=== PATIENT | male | born 1995 | race African-American/Black ===

== ENCOUNTER 2020-06-17 10:22 | Emergency (ER) | payer OTHER, SELFPAY ==
[2020-06-17 10:52] VITALS: BP 135/71; PULSE 81; RESP 16; TEMP 36.1; O2SAT 100
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
== END 2020-06-17 11:36 | disposition home or self-care (01) ==
PROVIDERS: Emergency Provider Registered Nurse
DX: Z72.51 High risk heterosexual behavior (principal)
CPT/HCPCS: 87491; 87591; 87661; 99213; G0463

== ENCOUNTER 2021-10-21 10:19 | Emergency (ER) | payer OTHER, SELFPAY ==
[2021-10-21 10:27] VITALS: BP 138/72; PULSE 80; RESP 16; TEMP 36.9; O2SAT 99
--- NOTE | 2021-10-21 10:35 | ED.MALEGU ---
HPI - Male Genitourinary General Chief complaint: Urogenital-Male Stated complaint: std testing Time Seen by Provider: 10/21/21 10:35 Source: patient and RN notes reviewed Mode of arrival: ambulatory Limitations: no limitations History of Present Illness HPI Narrative: 26-year-old male presented for known exposure to chlamydia. He states he just wants to be treated for chlamydia at this time. He endorses irritation of the genital area, denies discharge, dysuria, or skin lesions. States his girlfriend tested positive for chlamydia yesterday and has started the treatment. Denies any abdominal pain, nausea, vomiting, fevers or chills. Related Data Allergies Allergy/AdvReac Type Severity Reaction Status Date / Time No Known Allergies Allergy Verified 10/21/21 10:26 Review of Systems Review of Systems: CONSTITUTIONAL: Denies body aches, fever, chills, or sweats. CARDIOVASCULAR: Denies chest pain, palpitations, or edema. RESPIRATORY: Denies dyspnea. GASTROINTESTINAL: Denies abdominal pain, nausea, vomiting, or diarrhea. GENITOURINARY: Denies dysuria, frequency, urgency, hematuria, flank pain SKIN: Denies rash, itching, or wounds. MUSCULOSKELETAL: Denies back pain or myalgia. [facility] Past Medical History Medical History No significant past medical history Surgical History Surgical History No history of previous surgery Family History Family History Grandparent Diabetes mellitus Hypertension Social History Social History Smoking status: Never smoker Alcohol intake: current Alcohol use details: social Substance use: never Gender identity (if verbalized by the patient): Male Comments At time of signature, I have reviewed and agree with nursing past medical, surgical, social and family history unless otherwise noted. Please see nursing chart for further information. There is no relevant family history pertinent to the presenting complaint Exam Narrative: GENERAL: Well-appearing ENT: Mucous membranes pink and moist. CHEST: No respiratory distress. Clear to auscultation. HEART: Regular rate and rhythm. ABDOMEN: Soft, nontender, nondistended, normal active bowel sounds. No CVA tenderness MUSCULOSKELETAL: No bony tenderness. SKIN: Warm, dry, no rash. NEURO: No focal deficits. Alert and oriented x3. Gait steady. PSYCH: Normal affect. Course Course Emergency Course: Patient is aware of diagnosis, understands and agrees to treatment plan. Anticipatory guidance given. Patient agrees to follow-up as directed and is aware of reasons to seek care at the emergency department. Portions of this record may have been created with voice recognition software Level of Care: Express Care Visit Vital Signs Vital signs: Vital Signs Temperature 98.5 F 10/21/21 10:27 Pulse Rate 80 10/21/21 10:27 Respiratory Rate 16 10/21/21 10:27 Blood Pressure 138/72 10/21/21 10:27 Pulse Oximetry 99 10/21/21 10:27 Oxygen Delivery Room Air 10/21/21 10:27 Temperature 98.5 F 10/21/21 10:27 Pulse Rate 80 10/21/21 10:27 Respiratory Rate 16 10/21/21 10:27 Blood Pressure 138/72 10/21/21 10:27 Pulse Oximetry 99 10/21/21 10:27 Oxygen Delivery Room Air 10/21/21 10:27 Reviewed MDM - Male Genitourinary MDM Narrative Medical decision making narrative: Patient presenting with concern for STD. Urine specimen collected for GC, chlamydia, trich. Informed Pt will be contacted w/ results when they become available if they are positive. Discussed with patient that it takes up to 7 days for results of cultures to be released and explained that we may treat empirically at this time. Agreeable to treatment for chlamydia only at this time due to the known exposure. I have
== END 2021-10-21 11:00 | disposition home or self-care (01) ==
PROVIDERS: Emergency Provider Nurse Practitioner Family
DX: Z20.2 Contact with and (suspected) exposure to infections with a predominantly sexual mode of transmission (principal)
CPT/HCPCS: 87491; 87591; 87661; 99213; G0463

== ENCOUNTER 2022-08-13 13:10 | Emergency (ER) | payer OTHER, SELFPAY ==
[2022-08-13 13:22] VITALS: BP 127/83; PULSE 95; RESP 18; TEMP 37.3; O2SAT 100
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
[2022-08-13 13:24] VITALS: BP 127/83; PULSE 95; RESP 18; TEMP 37.3; O2SAT 100
== END 2022-08-13 13:32 | disposition home or self-care (01) ==
PROVIDERS: Emergency Provider Nurse Practitioner
DX: R51.9 Headache, unspecified (principal)
CPT/HCPCS: 99213; G0463

== ENCOUNTER 2022-10-01 05:28 | Emergency (ER) | payer OTHER, SELFPAY ==
--- NOTE | ~2022-10-01 | CT_ITS ---
CT of the Abdomen and Pelvis: Indication: Hematuria Technique: 2.5 mm axial scans were obtained through the abdomen and pelvis following intravenous adm inistration of 100 cc of Omnipaque 350. Dose reduction technique was used on this scan by utilizing a utomated exposure control and iterative reconstruction technique. The dose-length product (DLP) was 2 71.86 mGy-cm. Findings: Scans through the lung bases are unremarkable. The liver, spleen, pancreas, gallbladder, adrenals and kidneys are within normal limits. No evidence of aortic aneurysm. No lymphadenopathy. No bowel obstruction or bowel wall thickening. There is no evidence to suggest acute appendicitis. Images through the pelvis were performed. Urinary bladder unremarkable. Prostate gland and seminal ve sicles are unremarkable. No ascites. Impression: No significant abnormalities seen. Reviewed, dictated and finalized at [facility]. Impression: No significant abnormalities seen.
[2022-10-01 05:35] VITALS: BP 146/86; PULSE 88; RESP 20; TEMP 36.2; O2SAT 88
[2022-10-01 06:06] LABS: Basophils Percent Auto 0.2 % (0.2-1.2); Eosinophils Absolute Auto 0.1 K/mm3 (0-0.3); Eosinophils Percent Auto 1.1 % (0-4.4); Hematocrit 44.7 % (42.0-52.0); Hemoglobin 15.3 g/dL (14.0-18.0); Immature Granulocyte Absolute 0.02 K/mm3 (0.00-0.031); Immature Granulocyte Percent A 0.3 % (0-0.5); Lymphocytes Absolute Auto 1.44 K/mm3 (0.9-3.2); Lymphocytes Percent Auto 22.7 % (18.3-44.2); Mean Corpuscular HGB Conc 34.2 g/dl (32-36); Mean Corpuscular Hemoglobin 32.9 pg (26-34); Mean Corpuscular Volume 96.1 fl (80-100); Monocytes Absolute Auto 0.5 K/mm3 (0.1-0.6); Monocytes Percent Auto 8.5 % (2.6-8.5); Neutrophils Absolute Auto 4.3 K/mm3 (1.3-6.7); Neutrophils Percent Auto 67.2 % (45.5-73.1); Platelet Count Result 262 k/mm3 (150-375); Red Blood Count 4.65 M/mm3 (4.6-6.20); Red Cell Distribution Width 12.5 % (11.5-14.5); White Blood Count 6.3 K/mm3 (4.5-10.0)
[2022-10-01 06:12] LABS: Alanine Aminotransferase 49 U/L (6-50); Albumin Level 4.7 g/dL (3.5-5.1); Alkaline Phosphatase 79 U/L (38-126); Anion Gap 5 mmol/L (8-16); Aspartate Amino Transferase 59 U/L (17-59); Bilirubin,Total 0.8 mg/dL (0.2-1.3); Blood Urea Nitrogen 10 mg/dL (9-20); Calcium 9.2 mg/dL (8.4-10.2); Carbon Dioxide 31 mmol/L (22-30); Chloride 103 mmol/L (98-107); Estimated CRCL calculation 87 ml/min; Estimated Glomerular Filt Rate > 60; Glucose 104 mg/dL (65-110); Lipase 50 U/L (23-300); Sodium 139 mmol/L (137-145)
[2022-10-01 06:35] LABS: Bacteria Urine None Seen /hpf; Need Manual Microscopic Reviewed; Non Pathogenic Casts 0-2; RBC Urine >100 /hpf (0-2); Squamous Epithelial Cell Urine Few /hpf (Few); WBC Urine >100 /hpf
[2022-10-01 06:55] LABS: Add Urine Microscopic? YES; Appearance Urine Turbid (Clear); Leukocyte Esterase Ur 2+ LEU/UL (Negative)
[2022-10-01 06:56] LABS: Bilirubin Urine Negative (Negative); Blood Urine 4+ (Negative); Glucose Urine UA Negative (Negative); Ketones Urine Trace mg/dL (Negative); Nitrate Urine Negative (Negative); Protein Urine 2+ mg/dL (Negative); Urobilinogen Urine 0.2 mg/dL (<2.0)
[2022-10-01 06:58] LABS: Color Urine Red (Yellow)
--- NOTE | 2022-10-01 07:43 | ED.MALEGU ---
HPI - Male Genitourinary General Chief complaint: Urogenital-Male Stated complaint: blood in urine Time Seen by Provider: 10/01/22 07:43 Source: patient and RN notes reviewed Mode of arrival: ambulatory Limitations: no limitations History of Present Illness HPI Narrative: 27 years old -[place] male noticed blood in his urine this morning with slight burning urination. He denies any fever, chills, nausea, vomiting, recent trauma or having similar symptoms in the past. Related Data Allergies Allergy/AdvReac Type Severity Reaction Status Date / Time No Known Allergies Allergy Verified 10/01/22 08:30 Review of Systems Review of Systems: All systems reviewed & are unremarkable except as noted in HPI and below PMFSH Past Medical History Medical History No significant past medical history Surgical History Surgical History No history of previous surgery Family History Family History Grandparent Diabetes mellitus Hypertension Social History Social History Smoking status: Never smoker Alcohol intake: current Alcohol use details: social Substance use: never Occupation/Education: unemployed Gender identity (if verbalized by the patient): Male Exam Narrative: General appearance: Well-developed, well-nourished Skin: Normal color Head: Normocephalic, nontraumatic Eyes: Clear conjunctiva ENT: Oropharynx normal, ears normal, nose normal Neck: Supple, nontender Chest and respiratory: Airway patent, no respiratory distress, no accessory muscle use Heart: Regular rate/rhythm Abdomen: Soft, nontender, no organomegaly, quiet bowel sounds Vascular: Normal peripheral pulses, normal capillary refill. Musculoskeletal: Normal range of motion, nontender back Neurologic: Alert and oriented ?3, [employer] is normal as tested, no gross motor deficit Course Reevaluation(s) Reevaluation #1: No new changes compared to on arrival to the ED Date: 10/01/22 Time: 09:59 Vital Signs Vital signs: Vital Signs Temperature 36.2 C L 10/01/22 05:35 Pulse Rate 88 10/01/22 05:35 Respiratory Rate 20 10/01/22 05:35 Blood Pressure 146/86 H 10/01/22 05:35 Pulse Oximetry 88 L 10/01/22 05:35 Oxygen Delivery Room Air 10/01/22 05:35 Temperature 36.8 C 10/01/22 08:28 Pulse Rate 78 10/01/22 08:28 Respiratory Rate 17 10/01/22 08:28 Blood Pressure 118/74 10/01/22 08:28 Pulse Oximetry 100 10/01/22 08:28 Oxygen Delivery Room Air 10/01/22 05:35 MDM - Male Genitourinary MDM Narrative Medical decision making narrative: Patient presents with hematuria, physical examination is unremarkable, urinary tract infection, urethritis, kidney stone are my concern. Work-up today showed urinary tract infection. Patient received 1 g of Rocephin IV prior to discharge. Will be discharged on Cipro 500 twice daily for 7 days and to follow-up with Dr. Bennett for further evaluation. Differential Diagnosis Differential diagnosis: Likely urinary tract infection and urethritis Lab Data 10/01/22 05:58 10/01/22 05:58 Labs: Lab Results 10/01/22 10/01/22 Range/Units 05:58 06:12 WBC 6.3 (4.5-10.0) K/mm3 RBC 4.65 (4.6-6.20) M/mm3 Hgb 15.3 (14.0-18.0) g/dL Hct 44.7 (42.0-52.0) % MCV 96.1 (80-100) fl MCH 32.9 (26-34) pg MCHC 34.2 (32-36) g/dl RDW 12.5 (11.5-14.5) % Plt Count 262 (150-375) k/mm3 MPV 9.0 (7.4-10.4) fl Immature Gran % (Auto) 0.3 (0-0.5)
[2022-10-01 08:28] VITALS: BP 118/74; PULSE 78; RESP 17; TEMP 36.8; O2SAT 100
[2022-10-01 10:08] VITALS: BP 127/86; PULSE 72; RESP 16; TEMP 37.1; O2SAT 98
--- NOTE | 2022-10-01 10:10 | PC.NURSE ---
Pt asked nurse if it would be possible to check him for std. Dr. Lambert notified at this time.
--- NOTE | 2022-10-01 10:15 | PC.NURSE ---
per erp titus dangelo to add gonorrhea, trichomonas, and syphilis to urine.
--- NOTE | 2022-10-01 10:17 | PC.NURSE ---
estela in lab notified of std add on at this time.
== END 2022-10-01 10:18 | disposition home or self-care (01) ==
PROVIDERS: Emergency Medicine; Emergency Provider Emergency Medicine
DX: N39.0 Urinary tract infection, site not specified (principal); R31.9 Hematuria, unspecified
CPT/HCPCS: 36415; 74177; 80053; 81001; 83690; 85025; 87077; 87086; 87186; 96365; 96366; 99284; J0696; Q9967

== ENCOUNTER 2023-08-11 17:45 | Emergency (ER) | payer OTHER, SELFPAY ==
[2023-08-11 17:56] VITALS: BP 120/74; PULSE 88; RESP 16; TEMP 37; O2SAT 100
--- NOTE | 2023-08-11 18:33 | ED.SKABFB ---
HPI - Skin/Abscess/Foreign Bdy General Chief complaint: Skin/Abscess/Foreign Body Stated complaint: Rash Time Seen by Provider: 08/11/23 18:25 Source: patient and RN notes reviewed Mode of arrival: ambulatory Limitations: no limitations History of Present Illness HPI narrative: Patient presents today with a pruritic rash to the right neck, forehead, and left upper arm x3 days. Reports he had some exposure to pesticide at work on his skin and has had this rash represents. He has tried some A &D ointment without relief. Related Data Allergies Allergy/AdvReac Type Severity Reaction Status Date / Time No Known Allergies Allergy Verified 08/11/23 17:47 Review of Systems Review of Systems: CONSTITUTIONAL: Denies body aches, fever, chills, or sweats. EYES: Denies visual changes, redness, or discharge. ENT: Denies rhinorrhea, congestion, sore throat, or otalgia. CARDIOVASCULAR: Denies chest pain, palpitations, or edema. RESPIRATORY: Denies cough or dyspnea. GASTROINTESTINAL: Denies abdominal pain, nausea, vomiting, or diarrhea. GENITOURINARY: Denies dysuria or hematuria. SKIN: + pruritic rash MUSCULOSKELETAL: Denies back pain, joint pain, or myalgia. NEUROLOGIC: Denies headache, numbness, tingling, or weakness. PSYCH: Denies depression or anxiety. [facility] Past Medical History Medical History No significant past medical history Surgical History Surgical History No history of previous surgery Family History Family History Grandparent Diabetes mellitus Hypertension Social History Social History Smoking status: Never smoker Alcohol intake: current Alcohol use details: social Substance use: never Occupation/Education: unemployed Gender identity (if verbalized by the patient): Male Comments At time of signature, I have reviewed and agree with nursing past medical, surgical, social and family history unless otherwise noted. Please see nursing chart for further information. There is no relevant family history pertinent to the presenting complaint Exam Narrative: GENERAL: Well-appearing, well-nourished, and in no acute distress. HEAD: Normocephalic, atraumatic. EYES: EOMI. No redness or drainage. Conjunctivae normal. ENT: Mucous membranes pink and moist. NECK: Normal AROM. Supple. No lymphadenopathy. CHEST: No respiratory distress. EXTREMITIES: Normal range of motion. No edema. SKIN: Warm, dry. Capillary refill normal. Normal skin turgor. Patches of non erythematous papular rash to the right neck and small patch to the left anterior upper arm as well as few scattered papules to the middle forehead. No swelling, erythema, drainage, pustules, crusting. NEURO: No focal deficits. Alert and oriented x3. Gait steady. PSYCH: Normal affect. No signs of depression or anxiety. Course Course Level of Care: Express Care Visit Vital Signs Vital signs: Vital Signs Temperature 98.6 F 08/11/23 17:56 Pulse Rate 88 08/11/23 17:56 Respiratory Rate 16 08/11/23 17:56 Blood Pressure 120/74 08/11/23 17:56 Pulse Oximetry 100 08/11/23 17:56 Oxygen Delivery Room Air 08/11/23 17:56 Temperature 98.6 F 08/11/23 17:56 Pulse Rate 88 08/11/23 17:56 Respiratory Rate 16 08/11/23 17:56 Blood Pressure 120/74 08/11/23 17:56 Pulse Oximetry 100 08/11/23 17:56 Oxygen Delivery Room Air 08/11/23 17:56 Reviewed MDM - Skin/Abscess/Foreign Bdy MDM Narrative Medical decision making narrative: Patient's symptoms are consistent with contact dermatitis. Patient will be treated with prednisone. Discussed antihistamine use as well. Anticipatory guidance given. Differential Diagnosis Differential diagnosis: Likely abscess of skin or subcu
== END 2023-08-11 18:45 | disposition home or self-care (01) ==
PROVIDERS: Emergency Provider Nurse Practitioner
DX: L24.5 Irritant contact dermatitis due to other chemical products (principal)
CPT/HCPCS: 99213; G0463

== ENCOUNTER 2023-12-23 17:30 | Emergency (ER) | payer OTHER, SELFPAY ==
[2023-12-23 17:57] VITALS: BP 121/78; PULSE 94; RESP 16; TEMP 37.3; O2SAT 98
--- NOTE | 2023-12-23 18:23 | ED.ABDPAIN ---
HPI - Abdominal Pain General Chief Complaint: Urogenital-Male Stated Complaint: urinary issue Source: patient, RN notes reviewed and old records reviewed Mode of arrival: ambulatory Limitations: no limitations History of Present Illness HPI narrative: Patient presents with complaints of urinary frequency. He is afraid that he has a UTI, he is also requesting STD testing. He denies any back pain, denies any belly pain. Denies any fever, chills, sweats. Denies any penile discharge. Voices no other concerns or complaints at this time Related Data Allergies Allergy/AdvReac Type Severity Reaction Status Date / Time No Known Allergies Allergy Verified 08/11/23 17:47 Review of Systems Review of Systems: All systems reviewed & are unremarkable except as noted in HPI and below Constitutional: Constitutional: Reports no additional constitutional complaints ENT: Reports system reviewed and no additional complaints, except as documented Cardiovascular: Cardiovascular: Reports no additional cardiovascular complaints Respiratory: Respiratory: Reports no additional respiratory complaints Gastrointestinal: Gastrointestinal: Reports no additional gastrointestinal complaints Genitourinary: Genitourinary: Reports no additional male genitourinary complaints, Reports as per HPI, Denies dysuria, Denies flank pain, Denies penile discharge, Reports urinary frequency, Denies urinary hesitancy and Denies urinary incontinence PMF Past Medical History Medical History No significant past medical history Surgical History Surgical History No history of previous surgery Family History Family History Grandparent Diabetes mellitus Hypertension Social History Social History Smoking status: Never smoker Alcohol intake: current Alcohol use details: social Substance use: never Occupation/Education: unemployed Gender identity (if verbalized by the patient): Male Comments At the time of my signature, I reviewed and agree with the nursing past medical, surgical, social, and family history. There is no relevant family history pertinent to the patient complaint. Exam Const: General: cooperative, no acute distress, alert and awake Orientation/consciousness: oriented to person, oriented to place and oriented to time HENMT: Head: normal to inspection Resp: Effort & Inspection: normal respiratory effort and able to speak in complete sentences Auscultation: clear to auscultation bilaterally, no crackles, no rales, no rhonchi and no wheezes Cardio: Palpation: normal PMI Rate: regular rate Rhythm: regular rhythm Heart sounds: S1 normal heart sound present and S2 normal heart sound present : General: Yes bladder normal to palpation and No CVA tenderness Neuro: General: oriented to person, oriented to place and oriented to time Cranial nerves: Yes CN's II-XII intact bilaterally Psych: Appearance: grossly normal Thought process: Normal thought process present Insight: Good insight present (Psych) Judgement: Good judgement present (Psych) Course Course Level of Care: Express Care Visit Vital Signs Vital signs: Vital Signs Temperature 99.1 F 12/23/23 17:57 Pulse Rate 94 12/23/23 17:57 Respiratory Rate 16 12/23/23 17:57 Blood Pressure 121/78 12/23/23 17:57 Pulse Oximetry 98 12/23/23 17:57 Oxygen Delivery Room Air 12/23/23 17:57 Temperature 99.1 F 12/23/23 17:57 Pulse Rate 94 12/23/23 17:57 Respiratory Rate 16 12/23/23 17:57 Blood Pressure 121/78 12/23/23 17:57 Pulse Oximetry 98 12/23/23 17:57 Oxygen Delivery Room Air 12/23/23 17:57 Reviewed MDM - Abdominal Pain MDM Narrative Medical decision making narrative: UA with no signs of infection.
[2023-12-23 18:43] LABS: EDUAAPPEAR Clear; EDUABILI 1+; EDUABLOOD Negative; EDUACOLOR1 Yellow; EDUAGLUCOSE Negative; EDUAKETONE Negative; EDUALEUKO Negative; EDUANITRATE Negative; EDUAPH 5.5; EDUAPROTEIN 1+; EDUAUROBILI 0.2
[2023-12-23 21:30] LABS: Trichomonas Vag PCR NOT DETECTED (NOT DETECTE)
[2023-12-23 21:54] LABS: Chlamydia trachomatis NOT DETECTED (NOT DETECTE); Neisseria gonorrhoeae PCR NOT DETECTED (NOT DETECTE)
== END 2023-12-23 18:33 | disposition home or self-care (01) ==
PROVIDERS: Emergency Provider Nurse Practitioner Family
DX: R35.0 Frequency of micturition (principal)
CPT/HCPCS: 81003; 87491; 87591; 87661; 99213; G0463